=== PATIENT | female | born 1950 | race Caucasian/White ===

== ENCOUNTER 2019-12-07 14:55 | Inpatient (IN) ==
[2019-12-07] MEDS ORDERED: 0.9 % SODIUM CHLORIDE 2,000 ML IV ONE (15:09)
[2019-12-07] MEDS ORDERED: ONDANSETRON 4 MG/2 ML VIAL IV ONE (15:09)
--- NOTE | 2019-12-07 15:18 | Emergency Department Note ---
HPI General Chief complaint: Dizziness Stated complaint: dizziness Time Seen by Provider: 12/07/19 15:09 Source: patient Mode of arrival: ambulatory Limitations: no limitations History of Present Illness HPI Narrative: Narrative: This 69-year-old female felt lightheaded At [facility] like she was going to pass out she came in. She does have irritable bowel and had an episode of bowel incontinence. Denies any difficulty urinating. Denies any fever or shortness of breath. Feels generally weak and nauseous. Denies he matochezia or melena. She states that her blood pressure dropped like this last time she had a urinary tract infection Related Data Home Medications Medication Instructions Recorded Confirmed amitriptyline 150 mg PO 01/12/16 bisoprolol-hydrochlorothiazide 1 ea PO 01/12/16 dicyclomine 20 mg PO QID 01/12/16 01/12/16 flaxseed oil 1,000 mg PO 01/12/16 losartan 100 mg 01/12/16 tqkqgtvevwwu-We-fvvb-minerals 1 ea PO 01/12/16 [Essential Daily] omeprazole 20 mg PO ACB 01/12/16 01/12/16 pramipexole 0.25 mg PO HS 01/12/16 01/12/16 sertraline 100 mg 01/12/16 sitagliptin [Januvia] 100 mg PO ONCE 01/12/16 01/12/16 spironolactone 25 mg PO ONCE 01/12/16 01/12/16 Allergies Allergy/AdvReac Type Severity Reaction Status Date / Time FERNANDEZ Inhibitors AdvReac Mild Diarrhea Verified 12/07/19 14:57 clindamycin AdvReac Mild Diarrhea Verified 12/07/19 14:57 Review of Systems ROS ROS Narrative: Narrative: All systems ED: reviewed and negative except as stated. PFSH Narrative Patient History Narrative: Narrative: Medical/Surgical/Family History All Active Problems (Updated 12/07/19 @ 16:42 by Emile Bee MD) Acute renal failure (Acute) Sepsis (Acute) Hypertension (Acute) Type II diabetes mellitus (Acute) Surgical History (Updated 12/07/19 @ 16:35 by Emile Bee MD) H/O rotator cuff surgery (Acute) H/O: hysterectomy (Acute) History of bilateral knee replacement (Acute) History of cholecystectomy (Acute) Hx of laparoscopic gastric banding (Acute) Social History Smoking Status: Never smoker Exam Narrative Narrative: Narrative: Obese female no acute distress resting. Normocephalic atraumatic. Conjunctive are clear sclerae white nonicteric. She does have some dermatitis bilateral eyebrows likely seborrheic. No nasal dischargeWithout lymphadenopathy or thyromegaly. Heart is regular rate and rhythm no murmur appreciated. Lungs are clear to auscultation bilaterally without wheezes rales rhonchi or respiratory distress. Body habitus limits Auscultation. Abdomen is soft nontender nondistended. No peritoneal signs or guarding. No pedal edema. Bilateral knees with scars from previous surgery. Looks like she is got Charcot feet bilaterally. Alert and oriented General Limitations: no limitations Course Vital Signs Vital signs: Vital Signs Temperature 97.0 F 12/07/19 14:55 Pulse Rate 81 12/07/19 14:55 Respiratory Rate 16 12/07/19 14:55 Blood Pressure 88/56 12/07/19 14:55 Pulse Oximetry (%) 96 12/07/19 14:55 Temperature 97.0 F 12/07/19 14:55 Pulse Rate 64 12/07/19 17:46 Respiratory Rate 22 12/07/19 17:46 Blood Pressure 107/64 12/07/19 17:46 Pulse Oximetry (%) 98 12/07/19 17:46 MDM MDM Narrative Medical decision making narrative: Narrative:She is hypotensive here 88/56 unclear cause. EKG is unrevealing. Differential diagnosis includes symptomatic anemia versus acute illness with sepsis versus Cardiogenic. Ordered work-up with x-ray laboratory. Chest x-ray was negative. She is breathing well; Oxygen saturations are normal. She Starts to have low blood pressure despite initial improvement with IV fluids. Ordered Levophed. Leading diagnosis is sepsis till proven otherwise. Start vancomycin and Rocephin. Lactic acid is elevated at 5.6. She is in acute renal failure with a creatinine of 2.1. She is not making much urine at all. We did do Guzman catheter Bladder scan did not show any urine. Blood gas showed pH is 7.38 PCO2 32 PO2 of 82. Oxygen started CT scan of the abdomen and pelvis is ordered to look for source of infection and because of renal failure. This is done without IV contrast secondary to Elevated creatinine.No cause is identified for sepsis I discussed the situation with Dr. Awad, Brass Burnisher who felt that she could be kept here. She agreed to consult on the patient. I then discussed situation with Dr. Stanley our hospitalist who agreed to accept the patient for further care and evaluation in the hospital. I was called out several times to review her blood pressures- However she never went below 70 map again so we did not have to start the Levophed that I ordered Lab Data Lab results reviewed: Yes I reviewed the patient's lab results. Result diagrams: 12/07/19 15:15 12/07/19 15:15 Labs: Lab Results 12/07/19 12/07/19 12/07/19 Range/Units 15:15 15:15 15:15 WBC 14.4 H (4.50-11.00) K/mcL RBC 5.31 (3.59-5.38) M/mcL Hgb 13.9 (11.2-15.7) g/dL Hct 44.4 (34.1-44.9) % MCV 83.6 (80.0-100.0) fL MCH 26.2 (26.0-34.0) pg MCHC 31.3 (31.0-36.0) g/dL RDW 13.9 (11.5-14.5) % Plt Count 237 (140-440) K/mcL MPV 9.4 (7.4-10.4) fL Gran % 87.9 H (38.0-78.0) % Lymph % (Auto) 8.1 L (15.5-49.0) % [place] % (Auto) 3.4 (1.0-12.0) % Eos % (Auto) 0.3 (0.0-7.0) % Baso % (Auto) 0.3 (0.0-2.0) % Gran # 12.65 H (1.80-8.00) K/mcL Lymph # (Auto) 1.17 L (1.50-4.80) K/mcL [place] # (Auto) 0.49 (0.10-0.90) K/mcL Eos # (Auto) 0.04 (0.00-0.70) K/mcL Baso # (Auto) 0.05 (0.00-0.30) K/mcL VBG Lactic Acid 5.6 H* (0.5-2.0) mmol/L Sodium 140 (133-145) mmol/L Potassium 4.1 (3.3-5.1) mmol/L Chloride 102 (96-108) mmol/L Carbon Dioxide 17 L (22-30) mmol/L Anion Gap 21.0 H (8-16) BUN 26 H (8-23) mg/dl Creatinine 2.1 H (0.6-1.1) mg/dl GFR Calculation 23 Glucose 178 H (70-105) mg/dL Calcium 9.6 (8.6-10.4) mg/dl Total Bilirubin 0.4 (0.0-1.0) mg/dL AST 22 (0-37) U/l ALT 19 (0-40) U/l Alkaline Phosphatase 112 (39-117) U/L Troponin T (0-0.03) ng/ml Total Protein 7.5 (5.9-8.4) gm/dL Albumin 4.4 (3.2-5.2) gm/dL Globulin 3.1 (2.2-3.7) gm/dL Albumin/Globulin Ratio 1.4 (1.0-2.3) 12/07/19 Range/Units 15:15 WBC (4.50-11.00) K/mcL RBC (3.59-5.38) M/mcL Hgb (11.2-15.7) g/dL Hct (34.1-44.9) % MCV (80.0-100.0) fL MCH (26.0-34.0) pg MCHC (31.0-36.0) g/dL RDW (11.5-14.5) % Plt Count (140-440) K/mcL MPV (7.4-10.4) fL Gran % (38.0-78.0) % Lymph % (Auto) (15.5-49.0) % [place] % (Auto) (1.0-12.0) % Eos % (Auto) (0.0-7.0) % Baso % (Auto) (0.0-2.0) % Gran # (1.80-8.00) K/mcL Lymph # (Auto) (1.50-4.80) K/mcL [place] # (Auto) (0.10-0.90) K/mcL Eos # (Auto) (0.00-0.70) K/mcL Baso # (Auto) (0.00-0.30) K/mcL VBG Lactic Acid (0.5-2.0) mmol/L Sodium (133-145) mmol/L Potassium (3.3-5.1) mmol/L Chloride (96-108) mmol/L Carbon Dioxide (22-30) mmol/L Anion Gap (8-16) BUN (8-23) mg/dl Creatinine (0.6-1.1) mg/dl GFR Calculation Glucose (70-105) mg/dL Calcium (8.6-10.4) mg/dl Total Bilirubin (0.0-1.0) mg/dL AST (0-37) U/l ALT (0-40) U/l Alkaline Phosphatase (39-117) U/L Troponin T < 0.01 (0-0.03) ng/ml Total Protein (5.9-8.4) gm/dL Albumin (3.2-5.2) gm/dL Globulin (2.2-3.7) gm/dL Albumin/Globulin Ratio (1.0-2.3) Radiology Data Radiology results reviewed: Yes I reviewed the patient's radiology results. Radiology results narrative: Chest x-ray shows no acute findings CT scan of the abdomen pelvis shows no acute findings to complain her sepsis- However multiple chronic findings are noted. She does have a lesion on the kidney which will require follow-up EKG Data EKG #1: EKG attestation: Yes I reviewed and interpreted this EKG. EKG results narrative: EKG shows right bundle branch block but otherwise no acute findings CC TIME Critical Care Time Critical Care Time: Yes Total Critical Care Time: 40 Attestation: Approximately 40 minutes critical care time which includes serial exams, reviewing studies documentation and coordination of care. I was immediately available to the patient the entire time she was in the ER. Discharge Plan Patient/Caregiver Discharge Instructions Pt seen by FINANCIAL AID COUNSELOR/PA only: No Clinical Impression: Acute renal failure Qualifiers: Acute renal failure type: unspecified Qualified Code(s): N17.9 - Acute kidney failure, unspecified Sepsis Qualifiers: Sepsis type: sepsis due to unspecified organism Sepsis acute organ dysfunction status: with acute organ dysfunction Severe sepsis acute organ dysfunction type: acute renal failure Acute renal failure type: unspecified Severe sepsis shock status: with septic shock Qualified Code(s): A41.9 - Sepsis, unspecified organism Patient Disposition: Xfer As Inpt ([facility]) Condition: Fair Follow up with: Ronni Espino ARNP [Primary Care Provider] - Prescriptions: No Action amitriptyline 150 MG Tablet 150 mg PO RF: 0 bisoprolol-hydrochlorothiazide 1 EACH Tablet 1 ea PO RF: 0 sertraline 100 MG Tablet 100 mg RF: 0 spironolactone 25 MG Tablet 25 mg PO ONCE RF: 0 flaxseed oil 1,000 MG Capsule 1,000 mg PO RF: 0 pramipexole 0.25 MG Tablet 0.25 mg PO HS RF: 0 omeprazole 20 MG Capsule 20 mg PO ACB RF: 0 losartan 100 MG Tablet 100 mg RF: 0 dicyclomine 10 MG Capsule 20 mg PO QID RF: 0 vznyochsvxkh-Ho-hebb-minerals [ESSENTIAL Daily] 1 EACH Tablet 1 ea PO RF: 0 sitagliptin [Januvia] 100 MG Tablet 100 mg PO ONCE RF: 0
[2019-12-07 15:50] LABS: Basophils # (Auto) 0.05 K/mcL (0.00-0.30); Basophils % (Auto) 0.3 % (0.0-2.0); Eosinophils # (Auto) 0.04 K/mcL (0.00-0.70); Eosinophils % (Auto) 0.3 % (0.0-7.0); Granulocytes % (Auto) 87.9 % (38.0-78.0); Hematocrit 44.4 % (34.1-44.9); Hemoglobin 13.9 g/dL (11.2-15.7); Lymphocytes # (Auto) 1.17 K/mcL (1.50-4.80); Lymphocytes % (Auto) 8.1 % (15.5-49.0); Mean Cell Volume 83.6 fL (80.0-100.0); Mean Corpuscular HGB Conc 31.3 g/dL (31.0-36.0); Mean Platelet Volume 9.4 fL (7.4-10.4); Monocytes # (Auto) 0.49 K/mcL (0.10-0.90); Monocytes % (Auto) 3.4 % (1.0-12.0); Platelet Count 237 K/mcL (140-440); RBC 5.31 M/mcL (3.59-5.38); Red Cell Distribution Width 13.9 % (11.5-14.5); WBC 14.4 K/mcL (4.50-11.00)
[2019-12-07] MEDS ORDERED: cefTRIAXone 1 GM VIAL IV ONE (16:10)
[2019-12-07] MEDS ORDERED: VANCOMYCIN 1,000 MG in 0.9 % SODIUM CHLORIDE 250 ML IV ONE (16:11)
[2019-12-07 16:16] LABS: ALT/SGPT 19 U/l (0-40); AST/SGOT 22 U/l (0-37); Albumin 4.4 gm/dL (3.2-5.2); Albumin/Globulin Ratio 1.4 (1.0-2.3); Alkaline Phosphatase 112 U/L (39-117); Bilirubin,Total 0.4 mg/dL (0.0-1.0); Blood Urea Nitrogen 26 mg/dl (8-23); Calcium 9.6 mg/dl (8.6-10.4); Carbon Dioxide 17 mmol/L (22-30); Chloride 102 mmol/L (96-108); Globulin 3.1 gm/dL (2.2-3.7); Glomerular Filtration Rate 23; Glucose 178 mg/dL (70-105)
--- NOTE | 2019-12-07 16:18 | XRay Report ---
CLINICAL INFORMATION: Weakness COMPARISON: 01/20/2014 TECHNIQUE: Portable FINDINGS: The heart size, mediastinum and pulmonary vessels are unremarkable. The lungs are clear. There are no effusions. The bones and soft tissues are within normal limits. IMPRESSION: Normal chest. Interpreted and Authenticated by: Beto Isbell 12/07/19
[2019-12-07] MEDS ORDERED: 0.9 % SODIUM CHLORIDE 250 ML IV SCH (16:45)
[2019-12-07] MEDS ORDERED: NOREPINEPHRINE BITARTRATE 16 MG in 0.9 % SODIUM CHLORIDE 234 ML IV SCH (16:45)
[2019-12-07] MEDS ORDERED: 0.9 % SODIUM CHLORIDE 1,000 ML IV SCH (16:45)
--- NOTE | 2019-12-07 17:50 | Cat Scan Report ---
CLINICAL INFORMATION: Right flank pain and sepsis COMPARISON: Abdomen and pelvic CT 01/19/2014 TECHNIQUE: 0.625 mm helical slices were obtained from the mid heart through the subtrochanteric regions. Following reconstruction, 2.5 mm sagittal, coronal and axial reformatted images were processed and reviewed at bone and soft tissue windows.The exam was performed using radiation dose optimization techniques including, but not limited to, automated exposure control, adjustment of the mA and/or kV according to patient size and use of iterative reconstruction technique. FINDINGS: Lung bases show subsegmental atelectasis in the posterior lower lobes that no infiltrates or effusions. The visualized heart is mildly enlarged. Abdominal images show 15 mm cyst lateral segment left hepatic lobe similar to previous exam. Gallbladder is surgically absent. Intrahepatic and common bile ducts are normal caliber: CBD is 5 mm. Both adrenal glands pancreas and aorta are normal. The spleen is mildly enlarged, but decreased and now spans 15 x 5.6 cm. There is a 3 mm nonobstructing stone inferior calyx left kidney. There is a 20 mm well-circumscribed lesion in the inferior pole the right kidney which is 50 Hounsfield units in density. It is likely a hyperdense cyst. It was likely present on prior study but more vaguely seen.No free air, free fluid or adenopathy. Pelvic images show hysterectomy and oophorectomy. Guzman catheter decompresses urinary bladder. 6 cm periumbilical hernia containing only mesenteric fat is appreciated. Lap band is again seen in the gastric fundus region. Stomach, small large bowel are grossly normal. Small bowel resection changes in the false pelvis seen. Bone windows show severe L3-4 and L4-5 central canal and IV foraminal stenosis due to disc protrusion and facet arthropathy. No focal osseous lesion IMPRESSION: 1. No sepsis source identified. 2. 20 mm well-circumscribed high density lesion inferior pole the right kidney. This may been present on previous exam but not well visualized. Suggest ultrasound to determine the presence of hyperdense cyst versus solid lesion. 3. 3 mm nonobstructing stone inferior calyx left kidney 4. Mild splenomegaly which has decreased since comparison CT six years prior 5. Probable hernia containing mesenteric fat stable Interpreted and Authenticated by: Beto Isbell 12/07/19
--- NOTE | 2019-12-07 18:34 | Internal Med History&Physical ---
HPI History of Present Illness Patient information: Note initiated : 12/07/19 at 6:28 pm Service Date, if different from initiated Date: [] Patient: Teresa Barillas a 69 y/o F admitted on for dizziness. Chief Complaint: [] History of present illness: Ms. Barillas is a 69 year old F with a history of DM type II/hypertension/anxiety disorder and morbid obesity who presents to the ER following episode of dizziness/lightheadedness while she was shopping at [employer]. She noticed sudden worsening of bilateral lower back pain and was about to pass out. She took a bus and came to the ER. Initial work-up was significant for septic shock from unclear source with blood pressures in 70s. CT abdomen pelvis was unremarkable. Patient was started on crystalloids. Initial lactic acid 5.6/white count 14,000, creatinine 2.1. Patient was started on vasopressors, antibiotics after cultures were drawn. Hospitalist service was consulted At the time of evaluation patient appears very weak and fatigued but is able to answer some of the question. Her symptoms started roughly 48 prior presentation with symptoms of malaise/weakness and lower back pain. She denies associated fever, chills, dysuria, hematuria, diarrhea, abdominal pain, chest pain or sick contacts. She denies changes in medications. Review of systems 10 point review system was performed and is negative except for ones discussed above [facility] Surgical History (Updated 12/07/19 @ 16:35 by Emile Bee MD) H/O rotator cuff surgery (Acute) H/O: hysterectomy (Acute) History of bilateral knee replacement (Acute) History of cholecystectomy (Acute) Hx of laparoscopic gastric banding (Acute) Social History smoking status: Never smoker MEDS/ALLERGIES Home Medications and Allergies Home Medications Medication Instructions Recorded Confirmed Type amitriptyline 150 mg PO HS 01/12/16 12/07/19 History bisoprolol-hydrochlorothiazide 1 ea PO DAILY 01/12/16 12/07/19 History dicyclomine 20 mg PO BID 01/12/16 12/07/19 History flaxseed oil 2,000 mg PO BID 01/12/16 12/07/19 History vubrpnhsxale-Ni-umfp-minerals 1 ea PO DAILY 01/12/16 12/07/19 History [Essential Daily] omeprazole 20 mg PO BID 01/12/16 12/07/19 History pramipexole 0.25 mg PO BID 01/12/16 12/07/19 History sitagliptin [Januvia] 100 mg PO ONCE 01/12/16 12/07/19 History B-complex with vitamin C [Super B 1 tab PO QDAY 12/07/19 12/07/19 History Complex-Vitamin C] ascorbic acid (vitamin C) 1 PO QHS 12/07/19 History cholecalciferol (vitamin D3) 125 mcg PO QDAY 12/07/19 12/07/19 History [Vitamin D3] losartan 25 mg PO QDAY 12/07/19 12/07/19 History sertraline [Zoloft] 100 mg PO QDAY 12/07/19 12/07/19 History spironolactone 100 mg PO QDAY 12/07/19 12/07/19 History vit C,E-Jx-orghv-lutein-zeaxan 1 cap PO BID 12/07/19 12/07/19 History [PreserVision AREDS-2] vitamin E 1,000 unit PO QDAY 12/07/19 12/07/19 History Allergies Allergy/AdvReac Type Severity Reaction Status Date / Time FERNANDEZ Inhibitors AdvReac Mild Diarrhea Verified 12/07/19 14:57 clindamycin AdvReac Mild Diarrhea Verified 12/07/19 14:57 EXAM Constitutional Vitals: Temp Pulse Resp BP Pulse Ox 97.0 F 64 22 107/64 98 12/07/19 14:55 12/07/19 17:46 12/07/19 17:46 12/07/19 17:46 12/07/19 17:46 Morbidly obese BMI 49 Fatigue lethargic and anxious Head normocephalic Oral cavity dry Periorbital xerosis/eczematous change No ear nose discharge Eye movement symmetrical Neck supple no lymphadenopathy S1-S2 regular, tachycardia Nonlabored breathing Nondistended nontender abdomen Lower extremity no cyanosis clubbing or joint swelling Skin no suspicious lesion Psych anxious but alert cooperative Neuro normal higher function DATA Data Completed and Pending Labs on day of discharge: Labs from last 24 hours 12/07/19 12/07/19 12/07/19 17:46 15:15 15:15 WBC RBC Hgb Hct MCV MCH MCHC RDW Plt Count MPV Gran % Lymph % (Auto) [place] % (Auto) Eos % (Auto) Baso % (Auto) Gran # Lymph # (Auto) [place] # (Auto) Eos # (Auto) Baso # (Auto) VBG Lactic Acid 5.6 H* Sodium Potassium Chloride Carbon Dioxide Anion Gap BUN Creatinine GFR Calculation Glucose Calcium Total Bilirubin AST ALT Alkaline Phosphatase Troponin T < 0.01 Total Protein Albumin Globulin Albumin/Globulin Ratio Urine Color Pending Urine Appearance Pending Urine pH Pending Ur Specific Raphine Pending Urine Protein Pending Urine Glucose (UA) Pending Urine Ketones Pending Urine Occult Blood Pending Urine Nitrate Pending Urine Bilirubin Pending Urine Urobilinogen Pending Ur Leukocyte Esterase Pending 12/07/19 12/07/19 15:15 15:15 WBC 14.4 H RBC 5.31 Hgb 13.9 Hct 44.4 MCV 83.6 MCH 26.2 MCHC 31.3 RDW 13.9 Plt Count 237 MPV 9.4 Gran % 87.9 H Lymph % (Auto) 8.1 L [place] % (Auto) 3.4 Eos % (Auto) 0.3 Baso % (Auto) 0.3 Gran # 12.65 H Lymph # (Auto) 1.17 L [place] # (Auto) 0.49 Eos # (Auto) 0.04 Baso # (Auto) 0.05 VBG Lactic Acid Sodium 140 Potassium 4.1 Chloride 102 Carbon Dioxide 17 L Anion Gap 21.0 H BUN 26 H Creatinine 2.1 H GFR Calculation 23 Glucose 178 H Calcium 9.6 Total Bilirubin 0.4 AST 22 ALT 19 Alkaline Phosphatase 112 Troponin T Total Protein 7.5 Albumin 4.4 Globulin 3.1 Albumin/Globulin Ratio 1.4 Urine Color Urine Appearance Urine pH Ur Specific Raphine Urine Protein Urine Glucose (UA) Urine Ketones Urine Occult Blood Urine Nitrate Urine Bilirubin Urine Urobilinogen Ur Leukocyte Esterase A/P Narrative A/P Narrative: * Septic shock from unclear source. Likely urine tract infection/pyelonephritis. White count 14,000. Lactic acid 5.6. Initiate aggressive crystalloid/venous lactate trending/pancultures/antibiotic coverage/vasopressors. Admit to ICU. * Acute renal failure with creatinine 2.1. Secondary to septic shock. Anuric at this time. Guzman's catheter/renal consult/vasopressors and treatment of primary etiology * History of hypertension hold antihypertensives * GERD continue PPI * DM type II continue CC diet/prandial insulin * Restless leg syndrome continue pramipexole * Morbid obesity continue directed therapy/dietary intervention/dietitian consult * Full code * Prophylaxis heparin Plan * Patient critically ill mandating inpatient ICU admission * vasopressors/crystalloids/venous lactate trending * Aggressive source evaluation * Monitor renal function Time spent on history and physical in excess of 65 minutes. An additional 35 minutes critical time spent on management of septic shock/acute renal failure vasopressor management and treatment coordination Time Spent With Patient Time: Total time spent is greater than 50% in coordination of care (as documented) at patient's floor/unit and/or counseling patient:
[2019-12-07 18:54] LABS: Appearance,Urine CLOUDY; Bacteria,Urine 0 /hpf (0); Bilirubin,Urine NEG (NEG); Color,Urine YELLOW; Culture Indicated,Urine YES; Glucose,Urine (UA) 50 mg/dL (NEG); Ketones,Urine NEG (NEG); Leukocyte Esterase,Urine 75 /uL (NEG); Mucus,Urine MANY /hpf (0); Nitrate,Urine NEG (NEG); Protein,Urine >=500 mg/dL (NEG); Specific Gravity,Urine 1.015 (1.000-1.035); Urine Amorphous Crystals FEW /hpf (0); Urine Blood 0.03 mg/dL (<0.03); Urine Hyaline Cast 49 /lpf (0-2); Urine RBC 26 /hpf (0-1); Urine Squamous Epithelial Cell 0 /hpf (0-4); Urine Transitional Epi Cells 1 /hpf (0-2); Urine WBC 119 /hpf (0-4); Urobilinogen,Urine NEG (NEG)
[2019-12-07] MEDS ORDERED: BISACODYL 10 MG SUPP.RECT PR PRN (19:20)
[2019-12-07] MEDS ORDERED: DEXTROSE 31 GM ORAL.SUSP PO PRN (19:20)
[2019-12-07] MEDS ORDERED: ACETAMINOPHEN 325 MG TABLET PO PRN (19:20)
[2019-12-07] MEDS ORDERED: DEXTROSE 50% 50 ML VIAL IV PRN (19:20)
[2019-12-07] MEDS ORDERED: CEFEPIME 2 GM in DEXTROSE 5% IN WATER 50 ML IV SCH (19:20)
[2019-12-07] MEDS ORDERED: ACETAMINOPHEN 650 MG/65 ML BOTTLE IV PRN (19:20)
[2019-12-07] MEDS ORDERED: POLYETHYLENE GLYCOL 3350 17 GM PACKET PO PRN (19:20)
[2019-12-07] MEDS ORDERED: ONDANSETRON 4 MG ODT TABLET SL PRN (19:20)
[2019-12-07] MEDS ORDERED: ONDANSETRON 4 MG/2 ML VIAL IV PRN (19:20)
[2019-12-07] MEDS ORDERED: POTASSIUM CHLORIDE 20 MEQ PACKET PO PRN (19:20)
[2019-12-07] MEDS: 0.9 % SODIUM CHLORIDE 250 ML IV SCH (19:58)
[2019-12-07] MEDS: LEVOFLOXACIN 750 MG/150 ML BAG IV SCH (19:59)
[2019-12-07] MEDS: DOCUSATE SODIUM 100 MG CAPSULE PO SCH (20:23)
[2019-12-07] MEDS: SENNOSIDES/DOCUSATE SODIUM 1 TAB TABLET PO SCH (22:49)
[2019-12-07] MEDS: INSULIN LISPRO 1 UNIT/0.01 ML UNIT SQ SCH (22:49)
[2019-12-07] MEDS: HEPARIN 5,000 UNIT/ML VIAL SQ SCH (22:51)
[2019-12-07] MEDS: 0.9 % SODIUM CHLORIDE 10 ML SYRINGE IV SCH (22:52)
[2019-12-07] MEDS: CEFEPIME 1 GM VIAL IV SCH (22:57)
[2019-12-08] MEDS: MELATONIN 3 MG TABLET PO PRN ×2 (02:09→21:07)
[2019-12-08] MEDS: 0.9 % SODIUM CHLORIDE 10 ML SYRINGE IV SCH ×3 (05:34→21:07)
--- NOTE | 2019-12-08 06:30 | Nephrology Consult Note ---
[facility] Data of Consult Primary Care Provider: Ronni Espino Consult Narrative Chief complaint: Fall, MADELYN History of present illness: 69-year-old woman with T2DM, HTN, anxiety disorder, morbid obesity (BMI 50) presented to the ER following an episode of dizziness/lightheadedness while she was shopping at [employer]. She mentions that she had sudden worsening of bilateral lower back pain. In the emergency room she was noted to be hypotensive, she was volume resuscitated and started on pressor, work-up for sepsis initiated. She was also diagnosed with MADELYN. Guzman was placed. denies NSAID use Review of systems 10 point review of system was performed and was negative except for what is stated in the HPI Medical history T2DM, reports well-controlled, with neuropathy, no known retinopathy HTN Chronic back pain Morbid obesity Past surgical history rotator cuff history, hysterectomy, knee replacement, cholecystectomy, gastric banding, bilateral big toe amputation Social history denies smoking, alcohol consumption, illicit drug use, has 3 children Family history cancer; no family history of renal failure cc:: CC: Cordell Landrum [facility] Surgical History (Updated 12/07/19 @ 16:35 by Emile Bee MD) H/O rotator cuff surgery (Acute) H/O: hysterectomy (Acute) History of bilateral knee replacement (Acute) History of cholecystectomy (Acute) Hx of laparoscopic gastric banding (Acute) Social History smoking status: Never smoker MEDS/ALLERGIES Home Medications and Allergies Home Medications Medication Instructions Recorded Confirmed Type amitriptyline 150 mg PO HS 01/12/16 12/07/19 History bisoprolol-hydrochlorothiazide 1 ea PO DAILY 01/12/16 12/07/19 History dicyclomine 20 mg PO BID 01/12/16 12/07/19 History flaxseed oil 2,000 mg PO BID 01/12/16 12/07/19 History acxqnszdfdcl-Tw-zxtd-minerals 1 ea PO DAILY 01/12/16 12/07/19 History [Essential Daily] omeprazole 20 mg PO BID 01/12/16 12/07/19 History pramipexole 0.25 mg PO BID 01/12/16 12/07/19 History sitagliptin [Januvia] 100 mg PO ONCE 01/12/16 12/07/19 History B-complex with vitamin C [Super B 1 tab PO QDAY 12/07/19 12/07/19 History Complex-Vitamin C] ascorbic acid (vitamin C) 1 tab PO QHS 12/07/19 12/08/19 History cholecalciferol (vitamin D3) 125 mcg PO QDAY 12/07/19 12/07/19 History [Vitamin D3] losartan 25 mg PO QDAY 12/07/19 12/07/19 History sertraline [Zoloft] 100 mg PO QDAY 12/07/19 12/07/19 History spironolactone 100 mg PO QDAY 12/07/19 12/07/19 History vit C,E-Kp-otgrp-lutein-zeaxan 1 cap PO BID 12/07/19 12/07/19 History [PreserVision AREDS-2] vitamin E 1,000 unit PO QDAY 12/07/19 12/07/19 History Allergies Allergy/AdvReac Type Severity Reaction Status Date / Time FERNANDEZ Inhibitors AdvReac Mild Diarrhea Verified 12/07/19 14:57 clindamycin AdvReac Mild Diarrhea Verified 12/07/19 14:57 Physical Examination Vital Signs Vital signs: Temp Pulse Resp BP Pulse Ox 36.6 C 66 12 106/59 97 12/08/19 00:02 12/08/19 06:02 12/08/19 06:02 12/08/19 06:02 12/08/19 06:02 Additional Exam Additional exam: Vital signs reviewed General in no acute distress, morbidly obese HEENT head is normocephalic, atraumatic. Nonicteric sclera Neck no JVD Cardiovascular regular rate and rhythm, present peripheral pulses, no rub Respiratory nonlabored respirations, clear to auscultation bilaterally Abdomen soft, nontender Extremities bilateral lower extremity edema below the knees, +1 Neuro alert, clear speech, moves all extremities Skin warm and dry Results Lab Results Result Diagrams: 12/07/19 15:15 12/08/19 06:05 Lab results: Most recent lab results Calcium 9.6 mg/dl (8.6-10.4) 12/07/19 15:15 A/P Assessment and plan (1) MADELYN (acute kidney injury): Status: Acute Narrative A/P Narrative: non oliguric, improving. Uncertain baseline creatinine as there is a gap in data between 2019 and 2019. It is possible she has baseline CKD but she has T2DM, morbid obesity, proteinuria on urine dipstick in 2014 MADELYN is most likely multifactorial pre-renal 2/2, diuretic use ATN hemodynamic, toxic, while on losartan/spironolactone/hydrochlorothiazide 01/03/2020 UA positive protein, 26 RBC, 119 WBC. 12/08/2019 renal ultrasound 1.7 cm simple cyst inferior pole of the right kidney 12/24/2019 CT abdomen pelvis 3 mm nonobstructing stone in the inferior calyx of the left kidney. 20 mm well-circumscribed lesion in the inferior pole of the right kidney which is 50 Hounsfield units. It was likely present on the prior study. Patient updated with findings and plan *Strict I/O *Avoid nephrotoxins; ARB, spironolactone, diuretic on hold *Dose medication to GFR Renal cyst *repeat renal ultrasound in 6 mo. hemodynamics and volume Shock, suspect septic, source UTI. ucx pending Reports lower extremity edema is at baseline Start pressor support and antibiotics per primary team acid-base Bicarbonate 20, improvement bone-mineral metabolism Corrected calcium 8.3. Mild hyperphosphatemia 5.4, in the setting of MADELYN. Monitor Mild hypomagnesemia s/p 2 gram replacement *Give 500 mg calcium carbonate p.o. today and tomorrow BUN/ K 29/3.8 Time Spent With Patient Time: Total time spent is greater than 50% in coordination of care (as documented) at patient's floor/unit and/or counseling patient: Total time spent with greater than 50% in coordination of care (as documented) at patient's floor/unit and/or counseling patient:: 25 - 35 minutes
[2019-12-08] MEDS: INSULIN LISPRO 1 UNIT/0.01 ML UNIT SQ SCH ×4 (07:58→21:11)
[2019-12-08 08:13] LABS: ALT/SGPT 15 U/l (0-40); AST/SGOT 19 U/l (0-37); Albumin 3.3 gm/dL (3.2-5.2); Albumin/Globulin Ratio 1.3 (1.0-2.3); Alkaline Phosphatase 85 U/L (39-117); Bilirubin,Direct < 0.2 mg/dL (0.0-0.3); Bilirubin,Total 0.3 mg/dL (0.0-1.0); Blood Urea Nitrogen 29 mg/dl (8-23); Calcium 7.7 mg/dl (8.6-10.4); Carbon Dioxide 20 mmol/L (22-30); Chloride 105 mmol/L (96-108); Globulin 2.6 gm/dL (2.2-3.7); Glomerular Filtration Rate 30; Glucose 107 mg/dL (70-105); Lactate Dehydrogenase 134 U/L (94-250); Phosphorous 5.4 mg/dL (2.7-4.5); Triglycerides 103 mg/dl (<150); Uric Acid 11.1 mg/dL (2.5-8.0)
[2019-12-08] MEDS: HEPARIN 5,000 UNIT/ML VIAL SQ SCH ×2 (08:37→21:11)
[2019-12-08] MEDS: MULTIVIT,THER IRON,CA,FA & MIN 1 TABLET PO SCH (08:41)
[2019-12-08] MEDS: DOCUSATE SODIUM 100 MG CAPSULE PO SCH ×2 (08:41→21:11)
[2019-12-08] MEDS: 0.9 % SODIUM CHLORIDE 250 ML IV SCH ×3 (08:54→22:23)
[2019-12-08] MEDS: CEFEPIME 1 GM VIAL IV SCH ×2 (09:02→21:07)
--- NOTE | 2019-12-08 10:20 | Internal Med Progress Note ---
SUBJECTIVE Subjective Patient information: Note initiated : 12/08/19 at 10:16 am Service Date, if different from initiated Date: [] Patient: Teresa Barillas a 69 y/o F admitted on 12/07/19 for dizziness. Chief Complaint: [] Ms. Barillas is a 69 year old F with a history of DM type II/hypertension/anxiety disorder and morbid obesity who presents to the ER following episode of dizziness/lightheadedness while she was shopping at [employer]. She noticed sudden worsening of bilateral lower back pain and was about to pass out. She took a bus and came to the ER. Initial work-up was significant for septic shock from unclear source with blood pressures in 70s. CT abdomen pelvis was unremarkable. Patient was started on crystalloids. Initial lactic acid 5.6/white count 14,000, creatinine 2.1. Patient was started on vasopressors, antibiotics after cultures were drawn. Hospitalist service was consulted At the time of evaluation patient appears very weak and fatigued but is able to answer some of the question. Her symptoms started roughly 48 prior presentation with symptoms of malaise/weakness and lower back pain. She denies associated fever, chills, dysuria, hematuria, diarrhea, abdominal pain, chest pain or sick contacts. She denies changes in medications. 12/07-patient remains on pressors however currently being weaned. Much improved renal function and endorgan dysfunction. Improve mentation. Tolerating diet. Venous lactate improved now within normal limits. Pyuria on UA. Creatinine down to 1.7. Nephrology on board. Magnesium 1.[address] abdomen reveals high density inferior pole right renal lesion. Ultrasound ordered. Constitutional Vitals: Vital Signs Temp Pulse Resp BP Pulse Ox 97.6 F 64 17 101/66 96 12/08/19 08:03 12/08/19 08:03 12/08/19 08:03 12/08/19 08:03 12/08/19 08:03 Period Temp Pulse Resp BP Sys/Kendall Pulse Ox Last 24 Hr 97.0 F-97.8 F 64-81 11-29 71-161/48-134 92-100 Intake and Output 12/07/19 12/08/19 12/08/19 21:59 05:59 13:59 Intake Total 2255 1756 302 Output Total 700 700 Balance 1555 1056 302 Weight 149.402 kg Alert oriented morbidly obese Nonlabored breathing Minimal anxiety No telemetry events Intake & Output: Intake & Output 12/07/19 12/08/19 12/08/19 21:59 05:59 13:59 Intake Total 2255 1756 302 Output Total 700 700 Balance 1555 1056 302 Weight 149.402 kg Intake: IV 2255 1156 2 Sodium Chloride 0.9% 1,000 ml @ 2000 1000 150 mls/hr IV .[id number] [facility] Rx#: [id number] Levophed 16 mg In Sodium 5 6 2 Chloride 0.9% 234 ml @ 10 MCG/ MIN 9.375 mls/hr IV Q24H [facility] Rx #:[id number] Vancomycin 1,000 mg In Sodium 250 Chloride 0.9% 250 ml @ 250 mls/ hr IV ONCE ONE Rx#:[id number] Oral 600 300 Output: Urine Catheter Amount 700 Void Amount 700 Other: Urine Appearance Clear Clear Uretheral (Guzman) Clear Clear Clear Urine Color Bright Yellow Pale Uretheral (Guzman) Light Ekaterina Light Ekaterina Light Ekaterina Urine Odor Normal Normal OBJ DATA Labs CBC & Chem 7: 12/07/19 15:15 12/08/19 06:05 Labs: Abnormal Lab Results 12/08/19 12/07/19 12/07/19 06:05 17:46 15:15 WBC Gran % Lymph % (Auto) Gran # Lymph # (Auto) VBG Lactic Acid 5.6 H* Carbon Dioxide 20 L Anion Gap BUN 29 H Creatinine 1.7 H Glucose 107 H Uric Acid 11.1 H Calcium 7.7 L Phosphorus 5.4 H Magnesium 1.3 L Urine Protein >=500 A Urine Glucose (UA) 50 A Urine Occult Blood 0.03 A Ur Leukocyte Esterase 75 A Urine RBC 26 H Urine WBC 119 H Amorphous Crystals Few A Hyaline Casts 49 H Urine Mucus Many A 12/07/19 12/07/19 15:15 15:15 WBC 14.4 H Gran % 87.9 H Lymph % (Auto) 8.1 L Gran # 12.65 H Lymph # (Auto) 1.17 L VBG Lactic Acid Carbon Dioxide 17 L Anion Gap 21.0 H BUN 26 H Creatinine 2.1 H Glucose 178 H Uric Acid Calcium Phosphorus Magnesium Urine Protein Urine Glucose (UA) Urine Occult Blood Ur Leukocyte Esterase Urine RBC Urine WBC Amorphous Crystals Hyaline Casts Urine Mucus Meds: Medications Acetaminophen (Tylenol) 650 mg PO Q4-6HP PRN; Protocol PRN Reason: Per Pain Protocol/Fever > 101 Bisacodyl (Dulcolax) 10 mg MI Q2-3DAYS PRN PRN Reason: Constipation Cefepime HCl (Maxipime) 1 gm IV Q12H [facility] Last Admin: 12/08/19 09:02 Dose: 1 gm Documented by: Dextrose (Dextrose 50%) 0 ml IV UD PRN PRN Reason: Hypoglycemia Diagnostic Test (Pha) (Accu-Chek) 1 each FS ACHS [facility] Last Admin: 12/08/19 07:58 Dose: 1 each Documented by: Docusate Sodium (Colace) 100 mg PO BID [facility] Last Admin: 12/08/19 08:41 Dose: Not Given Documented by: Glucose (Insta-Glucose) 15 gm PO PRN PRN PRN Reason: Hypoglycemia Heparin Sodium (Porcine) (Heparin) 5,000 unit SQ Q12 [facility] Last Admin: 12/08/19 08:37 Dose: 5,000 unit Documented by: Norepinephrine Bitartrate 16 (mg/ Sodium Chloride) 250 mls @ 9.375 mls/hr IV Q24H [facility]; Protocol Sodium Chloride (Sodium Chloride 0.9%) 250 mls @ 20 mls/hr IV .[id number] [facility] Last Admin: 12/08/19 08:54 Dose: 20 mls/hr Documented by: Acetaminophen (Ofirmev) 650 mg in 65 mls @ 130 mls/hr IV Q6HP PRN; Protocol PRN Reason: Per Pain Protocol/Fever > 101 Magnesium Sulfate (Magnesium Sulfate) 2 gm in 50 mls @ 50 mls/hr IV UD PRN PRN Reason: MG = or < 1.7 Levofloxacin (Levaquin) 750 mg in 150 mls @ 100 mls/hr IV Q48H [facility]; Protocol Last Infusion: 12/07/19 22:47 Dose: Infused Documented by: Insulin Human Lispro (Humalog) 0 unit SQ [facility]; Protocol Last Admin: 12/08/19 07:58 Dose: Not Given Documented by: Iron Carb/Multivit/[place]/Folic Acid (Multivitamin W/Minerals) 1 tab PO DAILY [facility] Last Admin: 12/08/19 08:41 Dose: 1 tab Documented by: Melatonin (Melatonin 3mg Tablet) 3 mg PO HSP PRN PRN Reason: Insomnia Last Admin: 12/08/19 02:09 Dose: 3 mg Documented by: Ondansetron HCl (Zofran Odt) 4 mg SL Q4-6HP PRN; Protocol PRN Reason: Nausea And Vomiting Ondansetron HCl (Zofran) 4 mg IV Q4-6HP PRN; Protocol PRN Reason: Nausea And Vomiting Polyethylene Glycol (Miralax) 17 gm PO DAILYP PRN PRN Reason: Constipation Potassium Chloride (Klor-Con) 40 meq PO DAILYP PRN PRN Reason: K+ < 3.5 Senna/Docusate Sodium (Senna Plus Tablet) 1 tab PO HS [facility] Last Admin: 12/07/19 22:49 Dose: Not Given Documented by: Sodium Chloride (Saline Flush) 10 ml IV Q8 [facility] Last Admin: 12/08/19 05:34 Dose: 10 ml Documented by: A/P Narrative A/P Narrative: * Septic shock secondary to pyelonephritis. Improving on vasopressors/crystalloids. Downtrending venous lactate. Improved endorgan dysfunction. Continue broad antibiotic coverage. Await culture sensitivities. * Acute renal failure secondary to septic shock. Clinically improving with creatinine down to 1.7 from 2.1. monitor renal function. Nephrology consult. * History of hypertension held antihypertensives in light of shock * Low magnesium start replacement * GERD continue PPI * DM type II continue CC diet/prandial insulin * Restless leg syndrome continue pramipexole * Morbid obesity continue directed therapy/dietary intervention/dietitian consult * Full code * Prophylaxis heparin Plan * Wean vasopressors as tolerated * Renal ultrasound * Magnesium replacement * Monitor renal function * PT OT nutrition support * Discharge planning Time Spent With Patient Time: Total time spent is greater than 50% in coordination of care (as documented) at patient's floor/unit and/or counseling patient: Total time spent with greater than 50% in coordination of care (as documented) at patient's floor/unit and/or counseling patient:: Greater than 35 minutes QUALITY VTE Deep Vein Thrombosis/Pulmonary Embolism Present on Admission: No
[2019-12-08] MEDS: MAGNESIUM SULFATE 2 GM/50 ML BAG IV PRN (11:03)
--- NOTE | 2019-12-08 12:55 | Ultrasound Report ---
CLINICAL INFORMATION: 20 mm well-circumscribed high density lesion inferior pole the right kidney on CT - evaluate cystic versus solid COMPARISON: Noncontrast abdomen pelvic CT 12/07/2019 FINDINGS: Right kidney is normal in size, configuration and echotexture: 10.6 x 5.5 cm. There is a 1.7 cm simple cyst in the inferior pole of the right kidney corresponding to the hyperdense lesion on CT. No solid lesion. IMPRESSION: 1.7 cm simple cyst inferior pole of the right kidney corresponding with the hyperdense lesion seen on CT. Interpreted and Authenticated by: Beto Isbell 12/08/19
[2019-12-08] MEDS ORDERED: CALCIUM CARBONATE 500 MG TAB.CHEW CHEWED ONE (13:59)
[2019-12-08] MEDS ORDERED: NOREPINEPHRINE BITARTRATE 16 MG in 0.9 % SODIUM CHLORIDE 234 ML IV SCH (16:45)
[2019-12-08] MEDS: SENNOSIDES/DOCUSATE SODIUM 1 TAB TABLET PO SCH (21:12)
[2019-12-09] MEDS: 0.9 % SODIUM CHLORIDE 10 ML SYRINGE IV SCH ×3 (05:30→20:53)
[2019-12-09 06:29] LABS: ALT/SGPT 13 U/l (0-40); AST/SGOT 15 U/l (0-37); Albumin 3.3 gm/dL (3.2-5.2); Albumin/Globulin Ratio 1.3 (1.0-2.3); Alkaline Phosphatase 83 U/L (39-117); Bilirubin,Direct < 0.2 mg/dL (0.0-0.3); Bilirubin,Total 0.2 mg/dL (0.0-1.0); Blood Urea Nitrogen 29 mg/dl (8-23); Calcium 8.7 mg/dl (8.6-10.4); Carbon Dioxide 22 mmol/L (22-30); Chloride 110 mmol/L (96-108); Globulin 2.5 gm/dL (2.2-3.7); Glomerular Filtration Rate 42; Glucose 107 mg/dL (70-105); Lactate Dehydrogenase 147 U/L (94-250); Triglycerides 168 mg/dl (<150); Uric Acid 10.2 mg/dL (2.5-8.0)
--- NOTE | 2019-12-09 06:59 | XRay Report ---
CLINICAL INFORMATION: Dizziness and weakness COMPARISON: 12/07/2019 TECHNIQUE: PA and Lateral views FINDINGS: The heart size, mediastinum and pulmonary vessels are unremarkable. The lungs are clear. There are no effusions. The bones and soft tissues are within normal limits. IMPRESSION: Normal chest. Interpreted and Authenticated by: Beto Isbell 12/09/19
[2019-12-09] MEDS: INSULIN LISPRO 1 UNIT/0.01 ML UNIT SQ SCH ×4 (08:25→20:52)
[2019-12-09] MEDS ORDERED: NOREPINEPHRINE BITARTRATE 16 MG in 0.9 % SODIUM CHLORIDE 234 ML IV PRN (09:15)
[2019-12-09] MEDS: MULTIVIT,THER IRON,CA,FA & MIN 1 TABLET PO SCH (09:25)
[2019-12-09] MEDS: DOCUSATE SODIUM 100 MG CAPSULE PO SCH ×3 (09:25→20:51)
[2019-12-09] MEDS: CEFEPIME 1 GM VIAL IV SCH ×2 (09:25→20:52)
[2019-12-09] MEDS: HEPARIN 5,000 UNIT/ML VIAL SQ SCH ×2 (09:26→20:52)
[2019-12-09] MEDS: LEVOFLOXACIN 750 MG/150 ML BAG IV SCH (09:28)
[2019-12-09] MEDS: 0.9 % SODIUM CHLORIDE 250 ML IV SCH (09:56)
--- NOTE | 2019-12-09 10:10 | Internal Med Progress Note ---
SUBJECTIVE Subjective Patient information: Note initiated : 12/09/19 at 10:05 am Service Date, if different from initiated Date: [] Patient: Teresa Barillas a 69 y/o F admitted on 12/07/19 for dizziness. Chief Complaint: [ Ms. Barillas is a 69 year old F with a history of DM type II/hypertension/anxiety disorder and morbid obesity who presents to the ER following episode of dizziness/lightheadedness while she was shopping at [email or web address]. She noticed sudden worsening of bilateral lower back pain and was about to pass out. She took a bus and came to the ER. Initial work-up was significant for septic shock from unclear source with blood pressures in 70s. CT abdomen pelvis was unremarkable. Patient was started on crystalloids. Initial lactic acid 5.6/white count 14,000, creatinine 2.1. Patient was started on vasopressors, antibiotics after cultures were drawn. Hospitalist service was consulted At the time of evaluation patient appears very weak and fatigued but is able to answer some of the question. Her symptoms started roughly 48 prior presentation with symptoms of malaise/weakness and lower back pain. She denies associated fever, chills, dysuria, hematuria, diarrhea, abdominal pain, chest pain or sick contacts. She denies changes in medications. 12/07-patient remains on pressors however currently being weaned. Much improved renal function and endorgan dysfunction. Improve mentation. Tolerating diet. Venous lactate improved now within normal limits. Pyuria on UA. Creatinine down to 1.7. Nephrology on board. Magnesium 1.[address] abdomen reveals high density inferior pole right renal lesion. Ultrasound ordered. 12/08-patient doing well. No overnight events. Off pressors since this morning. Improved renal function creatinine down to 1.3. Lactic acid normalized. White count down to 14.4. Ongoing nutrition support/physical therapies. Will likely transition out of ICU later today if remains stable. Continue antibiotic coverage. Cultures negative so far. Constitutional Vitals: Vital Signs Temp Pulse Resp BP Pulse Ox 97.3 F 70 14 102/62 99 12/09/19 08:01 12/09/19 09:01 12/09/19 09:01 12/09/19 09:01 12/09/19 09:01 Period Temp Pulse Resp BP Sys/Kendall Pulse Ox Last 24 Hr 97.0 F-98.8 F 67-131 10-26 82-148/47-108 82-100 Intake and Output 12/08/19 12/09/19 12/09/19 21:59 05:59 13:59 Intake Total 2899 308 Output Total 2124 1899 Balance 774 -1592 Weight 149.402 kg Alert oriented No anxiety nonlabored breathing Nondistended abdomen No telemetry events Intake & Output: Intake & Output 12/08/19 12/09/19 12/09/19 21:59 05:59 13:59 Intake Total 2899 308 Output Total 2124 1899 Balance 774 -1592 Weight 149.402 kg Intake: IV 279 8 Sodium Chloride 0.9% 250 ml @ 250 20 mls/hr IV .[id number] [facility] Rx#: [id number] Levophed 16 mg In Sodium 29 8 Chloride 0.9% 234 ml @ 10 MCG/ MIN 9.375 mls/hr IV Q24H [facility] Rx #:[id number] Oral 2620 300 Output: Urine Catheter Amount 2124 1899 Other: Meal Dinner Percent of Meal Consumed 100% Feeding Ability Independent Urine Appearance Small Blood Clots Clear Small Blood Clots Uretheral (Guzman) Small Blood Clots Small Blood Clots Urine Color Light Ekaterina Pale Uretheral (Guzman) Light Ekaterina Light Ekaterina Urine Odor Strong Normal Uretheral (Guzman) Strong Strong OBJ DATA Labs CBC & Chem 7: 12/07/19 15:15 12/09/19 05:00 Labs: Abnormal Lab Results 12/09/19 12/08/19 12/07/19 05:00 06:05 17:46 WBC Gran % Lymph % (Auto) Gran # Lymph # (Auto) VBG Lactic Acid Chloride 110 H Carbon Dioxide 20 L Anion Gap BUN 29 H 29 H Creatinine 1.3 H 1.7 H Glucose 107 H 107 H Uric Acid 10.2 H 11.1 H Calcium 7.7 L Phosphorus 5.0 H 5.4 H Magnesium 1.3 L Total Protein 5.8 L Triglycerides 168 H Urine Protein >=500 A Urine Glucose (UA) 50 A Urine Occult Blood 0.03 A Ur Leukocyte Esterase 75 A Urine RBC 26 H Urine WBC 119 H Amorphous Crystals Few A Hyaline Casts 49 H Urine Mucus Many A 12/07/19 12/07/19 12/07/19 15:15 15:15 15:15 WBC 14.4 H Gran % 87.9 H Lymph % (Auto) 8.1 L Gran # 12.65 H Lymph # (Auto) 1.17 L VBG Lactic Acid 5.6 H* Chloride Carbon Dioxide 17 L Anion Gap 21.0 H BUN 26 H Creatinine 2.1 H Glucose 178 H Uric Acid Calcium Phosphorus Magnesium Total Protein Triglycerides Urine Protein Urine Glucose (UA) Urine Occult Blood Ur Leukocyte Esterase Urine RBC Urine WBC Amorphous Crystals Hyaline Casts Urine Mucus Meds: Medications Acetaminophen (Tylenol) 650 mg PO Q4-6HP PRN; Protocol PRN Reason: Per Pain Protocol/Fever > 101 Bisacodyl (Dulcolax) 10 mg MI Q2-3DAYS PRN PRN Reason: Constipation Cefepime HCl (Maxipime) 1 gm IV Q12H [facility] Last Admin: 12/09/19 09:25 Dose: 1 gm Documented by: Dextrose (Dextrose 50%) 0 ml IV UD PRN PRN Reason: Hypoglycemia Diagnostic Test (Pha) (Accu-Chek) 1 each FS ACHS [facility] Last Admin: 12/09/19 08:25 Dose: 1 each Documented by: Docusate Sodium (Colace) 100 mg PO BID [facility] Last Admin: 12/09/19 09:47 Dose: Not Given Documented by: Glucose (Insta-Glucose) 15 gm PO PRN PRN PRN Reason: Hypoglycemia Heparin Sodium (Porcine) (Heparin) 5,000 unit SQ Q12 [facility] Last Admin: 12/09/19 09:26 Dose: 5,000 unit Documented by: Sodium Chloride (Sodium Chloride 0.9%) 250 mls @ 20 mls/hr IV .[id number] [facility] Last Admin: 12/09/19 09:56 Dose: Not Given Documented by: Acetaminophen (Ofirmev) 650 mg in 65 mls @ 130 mls/hr IV Q6HP PRN; Protocol PRN Reason: Per Pain Protocol/Fever > 101 Magnesium Sulfate (Magnesium Sulfate) 2 gm in 50 mls @ 50 mls/hr IV UD PRN PRN Reason: MG = or < 1.7 Last Infusion: 12/08/19 12:20 Dose: Infused Documented by: Levofloxacin (Levaquin) 750 mg in 150 mls @ 100 mls/hr IV Q48H [facility]; Protocol Last Admin: 12/09/19 09:28 Dose: 100 mls/hr Documented by: Norepinephrine Bitartrate 16 (mg/ Sodium Chloride) 250 mls @ 9.375 mls/hr IV Q24HP PRN; Protocol PRN Reason: TITRATE TO KEEP MAP > 65 Insulin Human Lispro (Humalog) 0 unit SQ ACHS [facility]; Protocol Last Admin: 12/09/19 08:25 Dose: Not Given Documented by: Iron Carb/Multivit/[place]/Folic Acid (Multivitamin W/Minerals) 1 tab PO DAILY [facility] Last Admin: 12/09/19 09:25 Dose: 1 tab Documented by: Melatonin (Melatonin 3mg Tablet) 3 mg PO HSP PRN PRN Reason: Insomnia Last Admin: 12/08/19 21:07 Dose: 3 mg Documented by: Ondansetron HCl (Zofran Odt) 4 mg SL Q4-6HP PRN; Protocol PRN Reason: Nausea And Vomiting Ondansetron HCl (Zofran) 4 mg IV Q4-6HP PRN; Protocol PRN Reason: Nausea And Vomiting Polyethylene Glycol (Miralax) 17 gm PO DAILYP PRN PRN Reason: Constipation Potassium Chloride (Klor-Con) 40 meq PO DAILYP PRN PRN Reason: K+ < 3.5 Senna/Docusate Sodium (Senna Plus Tablet) 1 tab PO HS [facility] Last Admin: 12/08/19 21:12 Dose: Not Given Documented by: Sodium Chloride (Saline Flush) 10 ml IV Q8 [facility] Last Admin: 12/09/19 05:30 Dose: Not Given Documented by: A/P Narrative A/P Narrative: * Septic shock secondary to pyelonephritis. Clinically resolved and now off pressors. Improved endorgan dysfunction including resolution of MADELYN. De- escalate antibiotics in the next 24 hours * Acute renal failure secondary to septic shock. Clinically improving with creatinine down to 1.3 from 2.1. Simple cyst on renal ultrasound * History of hypertension held antihypertensives in light of shock * Low magnesium resolved with replacement * GERD continue PPI * DM type II continue CC diet/prandial insulin * Restless leg syndrome continue pramipexole * Morbid obesity continue directed therapy/dietary intervention/dietitian consult * Full code * Prophylaxis heparin Plan * Restart prior home medications * Magnesium replacement * Monitor renal function * PT OT nutrition support * Discharge planning Time Spent With Patient Time: Total time spent is greater than 50% in coordination of care (as documented) at patient's floor/unit and/or counseling patient: QUALITY VTE Deep Vein Thrombosis/Pulmonary Embolism Present on Admission: No
[2019-12-09] MEDS: MAGNESIUM SULFATE 2 GM/50 ML BAG IV PRN (10:23)
--- NOTE | 2019-12-09 12:37 | Nephrology Progress Note ---
SUBJECTIVE Subjective Patient information: Note initiated : 12/09/19 at 12:33 pm Service Date, if different from initiated Date: [] Patient: Teresa Barillas 69 y/o F admitted on 12/07/19 for dizziness. interval history - good urine output I/O 3804/5075cc - renal function improving Constitutional Vitals: Vital Signs Temp Pulse Resp BP Pulse Ox 36.3 C 70 20 107/66 95 12/09/19 08:01 12/09/19 09:01 12/09/19 11:01 12/09/19 11:01 12/09/19 11:01 Period Temp Pulse Resp BP Sys/Kendall Pulse Ox Last 24 Hr 36.1 C-37.1 C 67-131 10-26 82-148/47-108 82-100 Intake and Output 12/08/19 12/09/19 12/09/19 21:59 05:59 13:59 Intake Total 2899 308 Output Total 2125 1900 525 Balance 774 -1592 -525 Weight 149.402 kg Intake & Output: Intake & Output 12/08/19 12/09/19 12/09/19 21:59 05:59 13:59 Intake Total 2899 308 Output Total 2125 1900 525 Balance 774 -1592 -525 Weight 149.402 kg Intake: IV 279 8 Sodium Chloride 0.9% 250 ml @ 250 20 mls/hr IV .[id number] [facility] Rx#: [id number] Levophed 16 mg In Sodium 29 8 Chloride 0.9% 234 ml @ 10 MCG/ MIN 9.375 mls/hr IV Q24H [facility] Rx #:[id number] Oral 2620 300 Output: Urine Catheter Amount 2125 1900 525 Other: Meal Dinner Percent of Meal Consumed 100% Feeding Ability Independent Urine Appearance Small Blood Clots Clear Clear Small Blood Clots Uretheral (Guzman) Small Blood Clots Small Blood Clots Clear Urine Color Light Ekaterina Pale Bright Yellow Uretheral (Guzman) Light Ekaterian Light Ekaterina Dark Yellow Urine Odor Strong Normal Normal Uretheral (Guzman) Strong Strong A/P Assessment and plan (1) MADELYN (acute kidney injury): Status: Acute (2) Renal cyst, right: Status: Chronic Narrative A/P Narrative: MADELYN improving, non oliguric. repeat renal ultrasound in 6 Mo to monitor renal cyst. (see prior note for more details) Please call with questions/ concerns Time Spent With Patient Time: Total time spent is greater than 50% in coordination of care (as documented) at patient's floor/unit and/or counseling patient:
[2019-12-09] MEDS: OMEPRAZOLE 20 MG CAPSULE PO SCH (17:23)
[2019-12-09] MEDS: DICYCLOMINE 20 MG TABLET PO SCH (20:50)
[2019-12-09] MEDS: VIT A,C & E/LUTEIN/MINERALS TABLET PO SCH (20:50)
[2019-12-09] MEDS: PRAMIPEXOLE 0.25 MG TABLET PO SCH (20:50)
[2019-12-09] MEDS: MELATONIN 3 MG TABLET PO PRN (20:50)
[2019-12-09] MEDS: SENNOSIDES/DOCUSATE SODIUM 1 TAB TABLET PO SCH (20:51)
[2019-12-09] MEDS ORDERED: FLAXSEED OIL 2000 MG PO SCH (21:00)
[2019-12-09] MEDS ORDERED: ASCORBIC ACID 500 MG TABLET PO SCH (21:00)
[2019-12-09] MEDS ORDERED: AMITRIPTYLINE 25 MG TABLET PO SCH (21:00)
[2019-12-10] MEDS: 0.9 % SODIUM CHLORIDE 10 ML SYRINGE IV SCH (05:18)
[2019-12-10 06:11] LABS: Basophils # (Auto) 0.01 K/mcL (0.00-0.30); Basophils % (Auto) 0.3 % (0.0-2.0); Eosinophils # (Auto) 0.14 K/mcL (0.00-0.70); Eosinophils % (Auto) 3.5 % (0.0-7.0); Granulocytes % (Auto) 66.1 % (38.0-78.0); Hematocrit 36.8 % (34.1-44.9); Hemoglobin 11.6 g/dL (11.2-15.7); Lymphocytes # (Auto) 0.91 K/mcL (1.50-4.80); Mean Cell Volume 82.7 fL (80.0-100.0); Mean Corpuscular HGB Conc 31.5 g/dL (31.0-36.0); Mean Platelet Volume 10.1 fL (7.4-10.4); Monocytes # (Auto) 0.28 K/mcL (0.10-0.90); Monocytes % (Auto) 7.1 % (1.0-12.0); Platelet Count 124 K/mcL (140-440); RBC 4.45 M/mcL (3.59-5.38); Red Cell Distribution Width 13.6 % (11.5-14.5)
[2019-12-10 07:02] LABS: ALT/SGPT 13 U/l (0-40); AST/SGOT 16 U/l (0-37); Albumin 3.6 gm/dL (3.2-5.2); Albumin/Globulin Ratio 1.4 (1.0-2.3); Alkaline Phosphatase 87 U/L (39-117); Bilirubin,Direct < 0.2 mg/dL (0.0-0.3); Bilirubin,Total 0.3 mg/dL (0.0-1.0); Blood Urea Nitrogen 25 mg/dl (8-23); Carbon Dioxide 19 mmol/L (22-30); Chloride 105 mmol/L (96-108); Globulin 2.6 gm/dL (2.2-3.7); Glomerular Filtration Rate 42; Glucose 106 mg/dL (70-105); Lactate Dehydrogenase 154 U/L (94-250); Triglycerides 202 mg/dl (<150); Uric Acid 9.5 mg/dL (2.5-8.0)
[2019-12-10 07:05] LABS: Phosphorous 3.9 mg/dL (2.7-4.5)
[2019-12-10] MEDS: OMEPRAZOLE 20 MG CAPSULE PO SCH (07:40)
[2019-12-10] MEDS: INSULIN LISPRO 1 UNIT/0.01 ML UNIT SQ SCH ×2 (07:44→12:23)
[2019-12-10] MEDS ORDERED: HYDROCORTISONE CRM 1% TUBE 30GM TOPICAL PRN (08:29)
--- NOTE | 2019-12-10 08:52 | Discharge Summary ---
Discharge Provider Provider Patient information: Note initiated : 12/10/19 at 8:48 am Service Date, if different from initiated Date: [] Patient: Teresa Barillas a 69 y/o F admitted on 12/07/19 for dizziness. Discharge diagnosis * Septic shock secondary to pyelonephritis. Clinically resolved and now off pressors. Improved endorgan dysfunction including resolution of MADELYN. Continue additional 7 days oral Levaquin * Acute pyelonephritis clinically improved. Continue additional 7 days oral Levaquin * Acute renal failure secondary to septic shock. Clinically improving with creatinine down to 1.3 from 2.1. Simple cyst on renal ultrasound * History of hypertension -advised to restart antihypertensives once systolics over 140. Held during hospitalization due to septic shock. * Low magnesium resolved with replacement * GERD continue PPI * DM type II continue CC diet/prandial insulin * Restless leg syndrome continue pramipexole * Morbid obesity was managed with directed therapies/dietary intervention Brief hospital course Ms. Barillas is a 69 year old F with a history of DM type II/hypertension/anxiety disorder and morbid obesity who presents to the ER following episode of dizziness/lightheadedness while she was shopping at [employer]. She noticed sudden worsening of bilateral lower back pain and was about to pass out. She took a bus and came to the ER. Initial work-up was significant for septic shock from unclear source with blood pressures in 70s. CT abdomen pelvis was unremarkable. Patient was started on crystalloids. Initial lactic acid 5.6/white count 14,000, creatinine 2.1. Patient was started on vasopressors, antibiotics after cultures were drawn. Hospitalist service was consulted At the time of evaluation patient appears very weak and fatigued but is able to answer some of the question. Her symptoms started roughly 48 prior presentation with symptoms of malaise/weakness and lower back pain. She denies associated fever, chills, dysuria, hematuria, diarrhea, abdominal pain, chest pain or sick contacts. She denies changes in medications. 12/07-patient remains on pressors however currently being weaned. Much improved renal function and endorgan dysfunction. Improve mentation. Tolerating diet. Venous lactate improved now within normal limits. Pyuria on UA. Creatinine down to 1.7. Nephrology on board. Magnesium 1.[address] abdomen reveals high density inferior pole right renal lesion. Ultrasound ordered. 12/08-patient doing well. No overnight events. Off pressors since this morning. Improved renal function creatinine down to 1.3. Lactic acid normalized. White count down to 14.4. Ongoing nutrition support/physical therapies. Will likely transition out of ICU later today if remains stable. Continue antibiotic coverage. Cultures negative so far. 12/09-patient doing well. No overnight events. Off pressors. Tolerating diet. On room air. Ambulating with physical therapy. Cultures negative so far. Discharging on oral Levaquin to continue for additional 7 days. Discharge instructions as below. Date of admission: 12/07/19 19:10 Discharge date: 12/10/19 Primary care physician: Ronni Espino Consults: 12/07/19 Consult to Physician [CONS] Stat Comment: Consulting Provider: Fatuma Awad Reason For Exam: Physician to Consult 12/07/19 18:06 Consult to Physician [CONS] Stat Comment: Consulting Provider: Cordell Landrum Reason For Exam: Physician to Consult Discharge Meds Discharge Medications Home Medications ESSENTIAL Daily 1 ea PO DAILY 01/12/16 [History Confirmed 12/07/19 Last Taken 12/06/19 08:00] Januvia 100 mg PO DAILY 01/12/16 [History Confirmed 12/09/19 Last Taken 12/06/19 08:00] amitriptyline 150 mg PO HS 01/12/16 [History Confirmed 12/07/19 Last Taken 12/06/19 08:00] bisoprolol-hydrochlorothiazide 1 ea PO DAILY 01/12/16 [History Confirmed 12/07/19 Last Taken 12/06/19 08:00] dicyclomine 20 mg PO BID 01/12/16 [History Confirmed 12/07/19 Last Taken 21:00] flaxseed oil 2,000 mg PO BID 01/12/16 [History Confirmed 12/07/19 Last Taken 12/06/19 21:00] omeprazole 20 mg PO BID 01/12/16 [History Confirmed 12/07/19 Last Taken 12/06/19 21:00] pramipexole 0.25 mg PO BID 01/12/16 [History Confirmed 12/07/19 Last Taken 12/06/19 21:00] B-complex with vitamin C [Super B Complex-Vitamin C] 1 tab PO QDAY 12/07/19 [History Confirmed 12/07/19 Last Taken 12/06/19 21:00] PreserVision AREDS-2 1 cap PO BID 12/07/19 [History Confirmed 12/07/19 Last Taken 12/06/19 21:00] cholecalciferol (vitamin D3) [Vitamin D3] 125 mcg PO QDAY 12/07/19 [History Confirmed 12/07/19 Last Taken 12/06/19 21:00] losartan 25 mg PO QDAY 12/07/19 [History Confirmed 12/07/19 Last Taken 12/06/19 08:00] sertraline [Zoloft] 100 mg PO QDAY 12/07/19 [History Confirmed 12/07/19 Last Taken 12/06/19 21:00] spironolactone 100 mg PO QDAY 12/07/19 [History Confirmed 12/07/19 Last Taken 12/06/19 21:00] vitamin E 1,000 unit PO QDAY 12/07/19 [History Confirmed 12/07/19 Last Taken 12/06/19 21:00] ascorbic acid (vitamin C) [Vitamin C] 1,000 mg PO HS 12/09/19 [History Confirmed 12/09/19 Last Taken Unknown] levofloxacin 500 mg PO Q24H #7 tab 12/10/19 [Rx Last Taken Unknown] COURSE Hospital Course Hospital course: . Discharge diagnosis: . Time Spent with Patient Time attestation: Total time spent providing and/or coordinating discharge services: EXAM Constitutional Vitals: Temp Pulse Resp BP Pulse Ox 96.7 F L 80 17 133/83 96 12/10/19 08:13 12/10/19 06:01 12/10/19 06:01 12/10/19 08:13 12/10/19 08:13 Discharge Data Data Completed and Pending Labs on day of discharge: Labs from last 24 hours 12/10/19 12/10/19 05:05 05:00 WBC 4.0 L RBC 4.45 Hgb 11.6 Hct 36.8 MCV 82.7 MCH 26.1 MCHC 31.5 RDW 13.6 Plt Count 124 L MPV 10.1 Gran % 66.1 Lymph % (Auto) 23.0 [place] % (Auto) 7.1 Eos % (Auto) 3.5 Baso % (Auto) 0.3 Gran # 2.62 Lymph # (Auto) 0.91 L [place] # (Auto) 0.28 Eos # (Auto) 0.14 Baso # (Auto) 0.01 Sodium 139 Potassium 4.4 Chloride 105 Carbon Dioxide 19 L Anion Gap 15.0 BUN 25 H Creatinine 1.3 H GFR Calculation 42 Glucose 106 H Uric Acid 9.5 H Calcium 9.0 Phosphorus 3.9 Magnesium 1.6 Total Bilirubin 0.3 Direct Bilirubin < 0.2 GGT 16 AST 16 ALT 13 Alkaline Phosphatase 87 Lactate Dehydrogenase 154 Total Protein 6.2 Albumin 3.6 Globulin 2.6 Albumin/Globulin Ratio 1.4 Triglycerides 202 H Preliminary micro results at discharge 12/07/19 15:43 Blood Culture - Preliminary Blood 12/07/19 15:21 Blood Culture - Preliminary Blood Discharge Plan Patient/Caregiver Discharge Instructions Activity: increase activity as tolerated Diet: Renal/Consistent Carbs Activity Restrictions/Additional Instructions: Follow-up PCP in [5] days Follow-up with nephrology in 2 weeks for management of CKD Continue oral Levaquin for additional 7 days I recommend primary care physician to check CBC BMP UA as a posthospital follow- up in 1 week Continue aggressive bowel regimen to prevent constipation Continue fall precautions All meals on chair sitting upright at 90 degrees to prevent aspiration Return to ER if worsening fever chills shortness of breath, diarrhea, bleeding Review risk and side effect profile of medications including antibiotics. Side effect may include mild to severe reaction including rash, diarrhea, cdiff and even which can be prevented by close follow-up with PCP and monitoring for side effects Refrain from smoking and alcohol Continue CCD/renal diet and activity as advised Discussed importance of medication adherence Please review medication list with patient prior to discharge Please schedule follow-up with PCP/Providers prior to discharge and provide printouts Prescriptions: New levofloxacin 500 mg tablet 500 mg PO Q24H Qty: 7 RF: 0 Continued amitriptyline 150 MG tablet 150 mg PO HS RF: 0 bisoprolol-hydrochlorothiazide 1 EACH tablet 1 ea PO DAILY RF: 0 flaxseed oil 1,000 MG capsule 2,000 mg PO BID RF: 0 pramipexole 0.25 MG tablet 0.25 mg PO BID RF: 0 omeprazole 20 MG capsule,delayed release(DR/EC) 20 mg PO BID RF: 0 dicyclomine 10 MG capsule 20 mg PO BID RF: 0 ESSENTIAL Daily 1 EACH tablet 1 ea PO DAILY RF: 0 Januvia 100 MG tablet 100 mg PO DAILY RF: 0 vitamin E 1,000 unit Capsule 1,000 unit PO QDAY RF: 0 spironolactone 100 mg Tablet 100 mg PO QDAY RF: 0 sertraline [Zoloft] 100 mg Tablet 100 mg PO QDAY RF: 0 losartan 25 mg Tablet 25 mg PO QDAY RF: 0 B-complex with vitamin C [Super B Complex-Vitamin C] Tablet 1 tab PO QDAY RF: 0 cholecalciferol (vitamin D3) [Vitamin D3] 125 mcg (5,000 unit) Tablet 125 mcg PO QDAY RF: 0 PreserVision AREDS-2 [id number] [id number] Capsule 1 cap PO BID RF: 0 ascorbic acid (vitamin C) [Vitamin C] 1,000 mg Tablet 1,000 mg PO HS RF: 0 Follow Up Plan Follow up with: Ronni Espino ARNP [Primary Care Provider] - Patient Disposition: Home, Self-Care Prognosis: Fair Rehab Potential: Fair I certify that the patient requires SNF services: No Overall status at discharge: patient is progressing back to baseline Discharge Orders: Discharge Order (Routine); Ordered 12/10/19 Ordered By: Cordell TONG VTE Deep Vein Thrombosis/Pulmonary Embolism Present on Admission: No
[2019-12-10] MEDS ORDERED: HYDROCHLOROTHIAZIDE 25 MG TABLET PO SCH (09:00)
[2019-12-10] MEDS ORDERED: VITAMIN E (DL,TOCOPHERYL ACET) 400 UNIT CAPSULE PO SCH (09:00)
[2019-12-10] MEDS ORDERED: VITAMIN D3 5,000 UNIT CAPSULE PO SCH (09:00)
[2019-12-10] MEDS ORDERED: VITAMIN B COMPLEX 1 CAPSULE PO SCH (09:00)
[2019-12-10] MEDS ORDERED: MULTIVITAMIN CA IRON MINERALS PO SCH (09:00)
[2019-12-10] MEDS ORDERED: SPIRONOLACTONE 25 MG TABLET PO SCH (09:00)
[2019-12-10] MEDS ORDERED: SERTRALINE 100 MG TABLET PO SCH (09:00)
[2019-12-10] MEDS ORDERED: sitaGLIPtin 100 MG TABLET PO SCH (09:00)
[2019-12-10] MEDS ORDERED: BISOPROLOL 5 MG TABLET PO SCH (09:00)
[2019-12-10] MEDS: MAGNESIUM SULFATE 2 GM/50 ML BAG IV PRN (09:39)
[2019-12-10] MEDS: CEFEPIME 1 GM VIAL IV SCH (09:39)
[2019-12-10] MEDS: MULTIVIT,THER IRON,CA,FA & MIN 1 TABLET PO SCH (09:40)
[2019-12-10] MEDS: VIT A,C & E/LUTEIN/MINERALS TABLET PO SCH (09:40)
[2019-12-10] MEDS: DICYCLOMINE 20 MG TABLET PO SCH (09:41)
[2019-12-10] MEDS: PRAMIPEXOLE 0.25 MG TABLET PO SCH (09:41)
[2019-12-10] MEDS: HEPARIN 5,000 UNIT/ML VIAL SQ SCH (09:42)
[2019-12-10] MEDS: DOCUSATE SODIUM 100 MG CAPSULE PO SCH (09:42)
== END 2019-12-10 13:12 | disposition home or self-care (01) | DRG 871 ==
LOC: ED 14:55 → ICU 19:10
PROVIDERS: ADMIT Internal Medicine; ATTEND Internal Medicine